=== PATIENT | female | born 1995 | race African-American/Black ===

== ENCOUNTER → 2024-12-05 | Emergency (ER) | payer MEDICAID ==
[~2024-12-05] VITALS: Ht 162.6 cm; Wt 74.0 kg
[~2024-12-05] MED LIST: TOPUD PO
[2024-12-05 05:29] VITALS: O2SAT 98
[2024-12-05 05:49] VITALS: BP 128/79; PULSE 99; RESP 15; TEMP 36.4; O2SAT 95
[2024-12-05] MEDS: ACETAMINOPHEN 325MG TABLET PO ONE (05:52)
== END ==
LOC: ER 06:13
DX: O99.343 Other mental disorders complicating pregnancy, third trimester (principal); O26.893 Other specified pregnancy related conditions, third trimester; R10.20 Pelvic and perineal pain unspecified side; F43.0 Acute stress reaction; Z3A.37 37 weeks gestation of pregnancy; Z79.899 Other long term (current) drug therapy
CPT/HCPCS: 99283